=== PATIENT | male | born 1990 | race African-American/Black ===

== ENCOUNTER 2017-05-23 23:43 | Emergency (ER) | payer SELFPAY ==
[~2017-05-23] VITALS: Ht 175.3 cm; Wt 110.0 kg
[~2017-05-23 23:43] MED LIST: GLYC2SUP RE; MAGN1SOL2 PO; Z.0.NO CURRENT MEDS
[2017-05-23 23:44] VITALS: BP 176/89; PULSE 82; RESP 16; TEMP 98.4; O2SAT 98
--- NOTE | 2017-05-24 00:07 | PD ---
HPI Chief Complaint: Foreign Body Time Seen by Provider: 00:00 Travel History International Travel<30 days: No Contact w/Intl Traveler<30days: No Traveled to known affect area: No History of Present Illness HPI 26-year-old male presents for evaluation of ring on left fourth finger. He reports that his girlfriend brought him a ring 2 days ago. He has been wearing it on his left fourth finger since then. His left fourth finger has become gradually swollen and now he is unable to remove it. Symptoms are moderate, aggravated by inability to remove ring. Denies any trauma to the finger. No other complaints. PFSH Past Medical History Medical History: Denies Significant Hx Diminished Hearing: No Immunizations Current: Yes Past Surgical History Surgical History: No Previous Surgery Social History Alcohol Use: No Tobacco Use: Yes (1PPD) Substance Use: No Allergies-Medications (Allergen,Severity, Reaction): Coded Allergies: No Known Allergies (Verified Adverse Reaction, Unknown, 05/23/17) Reported Meds & Prescriptions Reported Meds & Active Scripts Active Citrate of Magnesia (Magnesium Citrate) Lemon Lilly 1 Btle PO Q12 Glycerin Adult (Glycerin) 2 Gm Sup 2 Gm RE BID Reported No Current Meds (Miscellaneous Medication) Misc Review of Systems Musculoskeletal: Positive: Edema, Pain Skin: Positive Other (positive for ring embedded on left fourth finger) Physical Exam Narrative GENERAL: Well-developed well-nourished male in no acute distress SKIN: Warm and dry. Extremities: Examination of the left hand reveals a yellow ring on the proximal aspect of the left fourth finger. There is distal mild edema on the left fourth finger. Capillary refill less than 2 seconds. Data Data Last Documented VS Vital Signs Date Time Temp Pulse Resp B/P (MAP) Pulse Ox O2 Delivery O2 Flow Rate FiO2 05/23/17 23:44 98.4 82 16 176/89 (118) 98 Room Air MDM Medical Decision Making Medical Screen Exam Complete: Yes Emergency Medical Condition: Yes Medical Record Reviewed: Yes Differential Diagnosis Ring on finger, finger necrosis, finger edema Narrative Course There was inability to remove the ring using lubrication and therefore after verbal consent was obtained the ring was cut off using ring cutters. This was successful. The patient is stable for discharge. Diagnosis Primary Impression: Tight ring on finger Med/Other Pt SpecificInfo: No Change to Meds Disposition: 01 DISCHARGE HOME Condition: Stable Moreno,Costa P. PA May 24, 2017 00:07
== END 2017-05-24 01:03 | disposition home or self-care (01) ==
LOC: NEPD 23:43
DX: S60.445A External constriction of left ring finger, initial encounter (principal); W49.04XA Ring or other jewelry causing external constriction, initial encounter
CPT/HCPCS: 99282